=== PATIENT | male | born 1945 | race Caucasian/White ===

== ENCOUNTER 2018-10-24 20:51 | Inpatient (IN) | payer OTHER ==
[2018-10-24 21:26] LABS: Absolute Lymphocytes (CBC) 0.7 K/uL (0.7-4.9); Absolute Monocytes 0.8 K/uL (0.1-1.3); Absolute Neutrophil 8.6 K/uL (1.8-8.0); Basophils % 1.1 % (0-1.3); Eosinophils % 0.6 % (0-4.4); Hematocrit 47.3 % (39.6-49.0); Lymphocytes % 6.8 % (15.3-44.8); MPV 10.1 fL (7.6-11.3); RBC Red Blood Cell Count 4.91 M/uL (4.33-5.43)
[2018-10-24 21:34] LABS: Protime INR 1.38
[2018-10-24 21:49] LABS: Bilirubin Direct 0.9 mg/dL (0-0.2); Bilirubin Total 1.7 mg/dL (0.2-1.0); Magnesium 2.4 mg/dL (1.8-2.4); Potassium 3.5 mmol/L (3.5-5.1); Protein, Total 6.6 g/dL (6.4-8.2); Troponin (Emerg Dept Use Only) 0.03 ng/mL (0.0-0.045)
[2018-10-24] MEDS ORDERED: NA CHLORIDE 0.9% 2,000 ML ONE (22:13)
[2018-10-24 23:19] LABS: Urine Blood TRACE (NEG); Urine Glucose NEGATIVE (NEG); Urine Protein 1+ (NEG); Urine Specific Gravity 1.025 (1.005-1.030); Urine pH 5.5 (5.0-7.0)
[2018-10-24 23:31] LABS: Urine Bacteria <20 /HPF (NONE SEEN); Urine RBC <5 /HPF (NONE SEEN)
[2018-10-24 23:32] LABS: Urine Culture Reflex Order NOT NEEDED
--- NOTE | 2018-10-24 23:48 | EDPHYS ---
Physician Documentation [facility] Name: Favio Ellis Age: 73 yrs Sex: Male : 1945 Arrival Date: 10/24/2018 Time: 20:52 Bed 6 Private MD: Josué Weir F ED Physician Hardik Owens HPI: 10/24 23:41 This 73 yrs old Male presents to ER via EMS with complaints of Altered Mental jr8 Status. 23:41 The patient presents with decreased mental status, decreased responsiveness. Onset: The jr8 symptoms/episode began/occurred gradually, 1 month(s) ago, and became worse and became persistent. Possible causes: unknown. Associated signs and symptoms: The patient has no apparent associated signs or symptoms. Current symptoms: In the emergency department the patient's symptoms are unchanged from the initial presentation. Patient's baseline: Neuro: orientated to person, place, Motor: no deficits, Ambulation: unable to walk, is bedridden, Speech: the patient makes incomprehensible sounds. The patient has not experienced similar symptoms in the past. The patient has not recently seen a physician. Family stated that patient has history of Parkinson's and noticed that over the past month has had a steady decline in mental status and motor functions. Has got to the point where he had to be moved from assisted living facility back to daughters home where he could get more care from both her and his . Now over the past few days has become much worse and now will not eat or drink. Historical: - Allergies: 21:04 Tetanus Vaccines \T\ Toxoid; ed1 - Home Meds: 21:04 allopurinol 300 mg Oral tab 1 tab once daily for Gout [Active]; Eliquis 5 mg oral tab 1 ed1 tab 2 times per day [Active]; loratadine 10 mg oral tab 1 tab once daily [Active]; melatonin 5 mg Oral tab nightly [Active]; Nuplazid 17 mg oral tab 2 tabs once daily [Active]; Proscar 5 mg Oral tab 1 tab once daily for Symptomatic Benign Prostatic Hyperplasia [Active]; Sinemet 25-100 mg Oral tab 0.5 tab 3 times per day [Active]; Synthroid 175 mcg Oral tab 1 tab once daily for Hypothyroidism [Active]; ergocalciferol (vitamin D2) oral oral 1 tab once wkly [Active]; - PMHx: 21:04 Hallucinations; Parkinsons; Depression; Insomnia; Hypertension; Diabetes - NIDDM; ed1 Hypothyroidism; Hyperlipidemia; Gout; Benign Prostatic Hyperplasia; 22:51 Throat cancer; ed1 - PSHx: 21:04 Unable to obtain; ed1 - Immunization history:: Adult Immunizations unknown. - Social history:: Smoking status: unknown. - Ebola Screening: : Patient negative for fever greater than or equal to 101.5 degrees Fahrenheit, and additional compatible Ebola Virus Disease symptoms Patient denies exposure to infectious person Patient denies travel to an Ebola-affected area in the 21 days before illness onset No symptoms or risks identified at this time. ROS: 23:41 Unable to obtain ROS due to altered mental status. jr8 Exam: 23:41 Eyes: Pupils equal round and reactive to light, extra-ocular motions intact. Lids and jr8 lashes normal. Conjunctiva and sclera are non-icteric and not injected. Cornea within normal limits. Periorbital areas with no swelling, redness, or edema. ENT: Nares patent. No nasal discharge, no septal abnormalities noted. Tympanic membranes are normal and external auditory canals are clear. Oropharynx with no redness, swelling, or masses, exudates, or evidence of obstruction, uvula midline. Mucous membranes dry. Neck: Trachea midline, no thyromegaly or masses palpated, and no cervical lymphadenopathy. Supple, full range of motion without nuchal rigidity Cardiovascular: Regular rate and rhythm with a normal S1 and S2. No gallops, murmurs, or rubs. Normal PMI, no JVD. No pulse deficits. Respiratory: Lungs have equal breath sounds bilaterally, clear to auscultation and percussion. No rales, rhonchi or wheezes noted. No increased work of breathing, no retractions or nasal flaring. Abdomen/GI: Soft with normal bowel sounds. No distension or tympany. No guarding or rebound Skin: Warm, dry with normal turgor. Normal color. abrasions noted to arms, legs, and face from rug aldnaa MS/ Extremity: Pulses equal, no cyanosis. Neurovascular intact. Contracted 23:41 Neuro: Orientation: Not oriented to person, place, time, situation, Mentation: confused, unable to follow commands, Motor: moves all fours, Abnormal movements: resting tremor, is located in the right hand, left hand, right arm, left arm, right leg and left leg. Vital Signs: 21:04 BP 117 / 90; Pulse 107; Resp 18; Temp 98.1(A); Pulse Ox 95% on R/A; ed1 22:47 BP 134 / 69; Pulse 98; Resp 20; Pulse Ox 97% on R/A; ed1 02 00:30 BP 149 / 73; Pulse 102; Resp 13; Temp 98.2(A); Pulse Ox 97% on R/A; ed1 MDM: 10/24 21:50 Patient medically screened. [facility] 23:46 Data reviewed: vital signs, nurses notes, lab test result(s), EKG, radiologic studies, jr8 CT scan, plain films, and as a result, I will admit patient. Data interpreted: Pulse oximetry: on room air is 98 %. Interpretation: normal. Counseling: I had a detailed discussion with the patient and/or guardian regarding: the historical points, exam findings, and any diagnostic results supporting the discharge/admit diagnosis, lab results, radiology results, the need for further work-up and treatment in the hospital. Physician consultation: Franco Chaidez MD was called at 23:46, was contacted at 23:46, regarding admission, to the telemetry unit. consult, patient's condition, and will see patient. 10/24 21:21 Order name: Basic Metabolic Panel; Complete Time: 21:54 1 10/24 21:21 Order name: CBC with Diff; Complete Time: 21:54 [facility] 10/24 21:21 Order name: LFT's; Complete Time: 21:54 [facility] 10/24 21:21 Order name: Magnesium; Complete Time: 21:54 [facility] 10/24 21:21 Order name: NT PRO-BNP; Complete Time: 21:54 1 10/24 21:21 Order name: PT-INR; Complete Time: 21:54 [facility] 10/24 21:21 Order name: Troponin (emerg Dept Use Only); Complete Time: 21:54 [facility] 10/24 22:01 Order name: CPK; Complete Time: 23:03 [facility] 10/24 22:16 Order name: Urine Microscopic Only; Complete Time: 23:38 [facility] 10/24 22:50 Order name: Urine Dipstick--Ancillary (enter results); Complete Time: 23:38 bb 10/25 00:55 Order name: CBC with Automated Diff [facility] 10/25 00:55 Order name: CBC with Automated Diff [facility] 10/25 00:55 Order name: CBC with Automated Diff [facility] 10/25 00:55 Order name: Comprehensive Metabolic Panel [facility] 10/24 21:21 Order name: XRAY Chest (1 view) [facility] 10/24 21:21 Order name: EKG; Complete Time: 21:23 [facility] 10/24 21:21 Order name: Cardiac monitoring; Complete Time: 21:26 [facility] 10/24 21:21 Order name: EKG - Nurse/Tech; Complete Time: 21:29 [facility] 10/24 21:21 Order name: IV Saline Lock; Complete Time: 21:26 [facility] 10/24 21:21 Order name: Labs collected and sent; Complete Time: 21:26 [facility] 10/24 21:21 Order name: O2 Per Protocol; Complete Time: 21:26 [facility] 10/24 21:21 Order name: O2 Sat Monitoring; Complete Time: 21:26 [facility] 10/24 22:16 Order name: CT Head Brain wo Cont [facility] 10/25 00:55 Order name: CONS Pharmacy Consult [facility] 10/25 00:55 Order name: NPO [facility] 10/25 00:55 Order name: Comprehensive Metabolic Panel [facility] 10/25 00:55 Order name: Comprehensive Metabolic Panel [facility] 10/24 22:16 Order name: Straight Cath - Urine; Complete Time: 22:48 [facility] 10/24 22:16 Order name: Urine Dipstick-Ancillary (obtain specimen); Complete Time: 22:48 [facility] Administered Medications: 22:12 Drug: NS 0.9% 1000 ml Route: IV; Rate: 1000 ml; Site: right forearm; ed1 23:37 Follow up: IV Status: Completed infusion; IV Intake: 1000ml ed1 22:12 Drug: NS 0.9% 1000 ml Route: IV; Rate: 100 ml/hr; Site: right forearm; ed1 10/25 01:10 Follow up: IV Status: Infusion continued upon admission ed1 10/24 23:08 Drug: NS 0.9% 1000 ml Route: IV; Rate: 1000 ml; Site: right forearm; ed1 10/25 00:30 Follow up: IV Status: Completed infusion; IV Intake: 1000ml ed1 Point of Care Testing: Blood Glucose: 10/24 21:19 Blood Glucose: 104 mg/dL; lp1 Ranges: Critical Glucose Levels:Adult <50 mg/dl or >400 mg/dl <40 mg/dl or >180 mg/dl Disposition: 10/25 06:53 Co-signature as Attending Physician, Hardik Owens MD I agree with the assessment and mendoza plan of care. Disposition: 10/24/18 23:47 Hospitalization ordered by Franco Chaidez for Inpatient Admission. Preliminary diagnosis are Dehydration, Rhabdomyolysis, Altered mental status, unspecified. - Bed requested for Telemetry/MedSurg (Inpatient). - Status is Inpatient Admission. ed1 - Condition is Fair. - Problem is new. - Symptoms have improved. UTI on Admission? No Signatures: Dispatcher [employer] EDMS Risa Duran RN RN Hardik Owens MD MD cha Riggs, Erika, RN RN ed1 Vero Singh RN RN 1 Cecilio Monroy PA PA jr8 Corrections: (The following items were deleted from the chart) 00:58 10/24 23:47 Hospitalization Ordered by Franco Chaidez MD for Inpatient Admission. Preliminary diagnosis is Dehydration; Rhabdomyolysis; Altered mental status, unspecified. Bed requested for Telemetry/MedSurg (Inpatient). Status is Inpatient Admission. Condition is Fair. Problem is new. Symptoms have improved. UTI on Admission? No. jr8 10/25 01:41 00:58 10/24/2018 23:47 Hospitalization Ordered by Franco Chaidez MD for Inpatient ed1 Admission. Preliminary diagnosis is Dehydration; Rhabdomyolysis; Altered mental status, unspecified. Bed requested for Telemetry/MedSurg (Inpatient). Status is Inpatient Admission. Condition is Fair. Problem is new. Symptoms have improved. UTI on Admission? No. mw
--- NOTE | 2018-10-24 23:48 | ER ---
Nurse's Notes [facility] Name: Favio Ellis Age: 73 yrs Sex: Male : 1945 Arrival Date: 10/24/2018 Time: 20:52 Bed 6 Private MD: Josué Weir F Diagnosis: Dehydration;Rhabdomyolysis;Altered mental status, unspecified Presentation: 10/24 20:56 Presenting complaint: EMS states: His family just moved him here from an assisted ed1 living facility in [place]. He has had a decreased appetite and the family says he isn't making as much urine as he normally does. He also has been getting out of the chair and bed and laying on the floor and getting sores. Transition of care: patient was not received from another setting of care. Onset of symptoms was October 24, 2018. Risk Assessment: Do you want to hurt yourself or someone else? Patient reports no desire to harm self or others. Initial Sepsis Screen: Does the patient meet any 2 criteria? Altered Mental Status. HR > 90 bpm. Yes Does the patient have a suspected source of infection? No. Patient's initial sepsis screen is negative. Care prior to arrival: None. 20:56 Method Of Arrival: EMS: [facility] ed1 20:56 Acuity: BANG 2 ed1 Triage Assessment: 21:04 General: Appears uncomfortable, Behavior is restless. Pain: Unable to use pain scale. ed1 Does not appear to understand pain scale. EENT: Oral mucosa is dry. Neuro: Level of Consciousness is confused. Cardiovascular: Heart tones S1 S2 present. Respiratory: Airway is patent Respiratory effort is even, unlabored, Respiratory pattern is regular, symmetrical. GI: Abdomen is non-distended. : Parent/caregiver report the patient having decreased urine output. Derm: Skin with poor turgor has blisters on right arm, left shoulder, left spiritism, left lower abdomen. Musculoskeletal: Circulation, motion, and sensation intact. Capillary refill < 3 seconds, in bilateral fingers. Historical: - Allergies: 21:04 Tetanus Vaccines \T\ Toxoid; ed1 - Home Meds: 21:04 allopurinol 300 mg Oral tab 1 tab once daily for Gout [Active]; Eliquis 5 mg oral tab 1 ed1 tab 2 times per day [Active]; loratadine 10 mg oral tab 1 tab once daily [Active]; melatonin 5 mg Oral tab nightly [Active]; Nuplazid 17 mg oral tab 2 tabs once daily [Active]; Proscar 5 mg Oral tab 1 tab once daily for Symptomatic Benign Prostatic Hyperplasia [Active]; Sinemet 25-100 mg Oral tab 0.5 tab 3 times per day [Active]; Synthroid 175 mcg Oral tab 1 tab once daily for Hypothyroidism [Active]; ergocalciferol (vitamin D2) oral oral 1 tab once wkly [Active]; - PMHx: 21:04 Hallucinations; Parkinsons; Depression; Insomnia; Hypertension; Diabetes - NIDDM; ed1 Hypothyroidism; Hyperlipidemia; Gout; Benign Prostatic Hyperplasia; 22:51 Throat cancer; ed1 - PSHx: 21:04 Unable to obtain; ed1 - Immunization history:: Adult Immunizations unknown. - Social history:: Smoking status: unknown. - Ebola Screening: : Patient negative for fever greater than or equal to 101.5 degrees Fahrenheit, and additional compatible Ebola Virus Disease symptoms Patient denies exposure to infectious person Patient denies travel to an Ebola-affected area in the 21 days before illness onset No symptoms or risks identified at this time. Screenin:58 Abuse screen: Denies threats or abuse. Denies injuries from another. Nutritional ed1 screening: No deficits noted. Tuberculosis screening: No symptoms or risk factors identified. Fall Risk Fall in past 12 months (25 points). Secondary diagnosis (15 points) Alzheimer's, IV access (20 points). Ambulatory Aid- None/Bed Rest/Nurse Assist (0 pts). Gait- Normal/Bed Rest/Wheelchair (0 pts) Mental Status- Overestimates/Forgets Limitations (15 pts.). Total Barbosa Fall Scale indicates High Risk Score (45 or more points). Fall prevention measures have been instituted. Side Rails Up X 2 Placed Close to Nursing Station Frequent Obs/Assessments Occuring As available patient and family educated on Fall Prevention Program and Strategies. Assessment: 22:04 Reassessment: Patient appears in no apparent distress at this time. No changes from ed1 previously documented assessment. Patient and/or family updated on plan of care and expected duration. Pain level reassessed. Pt responsive to verbal stimuli. 22:47 Reassessment: Patient appears in no apparent distress at this time. No changes from ed1 previously documented assessment. Patient and/or family updated on plan of care and expected duration. Pain level reassessed. 10/25 00:30 Reassessment: Patient appears in no apparent distress at this time. No changes from ed1 previously documented assessment. Patient and/or family updated on plan of care and expected duration. Pain level reassessed. Neuro: Level of Consciousness is obeys commands. Vital Signs: 10/24 21:04 BP 117 / 90; Pulse 107; Resp 18; Temp 98.1(A); Pulse Ox 95% on R/A; ed1 22:47 BP 134 / 69; Pulse 98; Resp 20; Pulse Ox 97% on R/A; ed1 10/25 00:30 BP 149 / 73; Pulse 102; Resp 13; Temp 98.2(A); Pulse Ox 97% on R/A; ed1 ED Course: 10/24 20:52 Patient arrived in ED. al2 20:52 Josué Weir MD is Private Physician. al2 20:55 Meka Gandhi, LALO is Primary Nurse. ed1 20:58 Triage completed. ed1 21:04 Arm band placed on. ed1 21:10 Missed attempt(s): 20 gauge in right forearm. Inserted saline lock: 20 gauge in right lp1 wrist, using aseptic technique. Blood collected. 21:20 Patient has correct armband on for positive identification. Placed in gown. Side rails lp1 up X2. monitoring coordinator on. Pulse ox on. NIBP on. 21:45 X-ray completed. Portable x-ray completed in exam room. Patient tolerated procedure kp1 well. 21:50 Cecilio Monroy PA is PHCP. jr8 21:50 Hardik Owens MD is Attending Physician. jr8 21:50 XRAY Chest (1 view) In Process Unspecified. EDMS 21:52 Notified Nurse Practitioner and/or Physician Machine [employer] of a critical lab result(s), ed1 Chloride 121. 22:36 Radiology exam delayed due to pt unable to come to CT at this time. vm2 23:05 CT Head Brain wo Cont In Process Unspecified. EDMS 23:47 Franco Chaidez MD is Hospitalizing Provider. jr8 10/25 01:08 No provider procedures requiring assistance completed. Patient admitted, IV remains in ed1 place. intact, No redness/swelling at site. Administered Medications: 10/24 22:12 Drug: NS 0.9% 1000 ml Route: IV; Rate: 1000 ml; Site: right forearm; ed1 23:37 Follow up: IV Status: Completed infusion; IV Intake: 1000ml ed1 22:12 Drug: NS 0.9% 1000 ml Route: IV; Rate: 100 ml/hr; Site: right forearm; ed1 10/25 01:10 Follow up: IV Status: Infusion continued upon admission ed1 10/24 23:08 Drug: NS 0.9% 1000 ml Route: IV; Rate: 1000 ml; Site: right forearm; ed1 10/25 00:30 Follow up: IV Status: Completed infusion; IV Intake: 1000ml ed1 Point of Care Testing: Blood Glucose: 10/24 21:19 Blood Glucose: 104 mg/dL; lp1 Ranges: Intake: 23:37 IV: 1000ml; Total: 1000ml. ed1 10/25 00:30 IV: 1000ml; Total: 2000ml. ed1 Outcome: 10/24 23:47 Decision to Hospitalize by Provider. jrDarius 10/25 01:08 Admitted to Med/surg accompanied by tech, via stretcher, room 210, with chart, Report ed1 called to Aurora Ayers RN Condition: stable Discharge instructions given to family, Instructed on the need for admit, Demonstrated understanding of instructions. 01:41 Patient left the ED. ed1 Signatures: Dispatcher [employer] EDMeka Salinas RN RN ed1 Vero Singh RN RN lp1 Cecilio Monroy PA PA 8 Juliana Hough 2 Oumou Marroquin 1 Inés Thompson2 Corrections: (The following items were deleted from the chart) 10/24 22:37 22:20 Patient moved to [facility] 2
[2018-10-25] MEDS ORDERED: NA CHLORIDE 0.9% 1,000 ML ONE (00:36)
[2018-10-25] MEDS ORDERED: ACETAMINOPHEN 500 MG TAB PO PRN (00:52)
[2018-10-25] MEDS ORDERED: ONDANSETRON 4 MG/2 ML VIAL IV PRN (00:52)
[2018-10-25] MEDS ORDERED: D5W 1,000 ML IV SCH (01:00)
[2018-10-25 01:52] VITALS: BMI 24.0
[2018-10-25 06:01] LABS: Absolute Lymphocytes (CBC) 0.9 K/uL (0.7-4.9); Absolute Monocytes 0.9 K/uL (0.1-1.3); Absolute Neutrophil 6.6 K/uL (1.8-8.0); Basophils % 0.8 % (0-1.3); Eosinophils % 1.2 % (0-4.4); Hematocrit 42.3 % (39.6-49.0); Lymphocytes % 10.1 % (15.3-44.8); MPV 10.9 fL (7.6-11.3); Monocytes % 10.8 % (3.3-12.3); RBC Red Blood Cell Count 4.42 M/uL (4.33-5.43)
[2018-10-25 06:20] LABS: Albumin 2.4 g/dL (3.4-5.0); Bilirubin Total 1.6 mg/dL (0.2-1.0); Potassium 3.4 mmol/L (3.5-5.1); Protein, Total 5.4 g/dL (6.4-8.2)
--- NOTE | 2018-10-25 07:31 | RAD REPORT ---
EXAM DESCRIPTION: RAD - Chest Single View - 10/24/2018 9:49 pm CLINICAL HISTORY: Altered mental status, ^MALAISE COMPARISON: January 2016 TECHNIQUE: AP portable chest image was obtained 2138 hours . FINDINGS: Fibrotic lung pattern not significantly different from the comparison. No peripheral conso lidation. No failure, infiltrate or suspicious mass lesion. Heart and vasculature are normal. No alfred urable pleural effusion and no pneumothorax. No acute bony abnormality seen. No acute aortic findings suspected. IMPRESSION: Chronic lung disease is present matching the comparison. No new or progressive finding.
[2018-10-25] MEDS: D5W 1,000 ML IV SCH ×2 (08:00→17:24)
--- NOTE | 2018-10-25 08:16 | RAD REPORT ---
EXAM DESCRIPTION: CT - Head Brain Wo Cont - 10/25/2018 3:31 am CLINICAL HISTORY: Decreased appetite, transient alteration of awareness A preliminary report was provided at the time of the study and reviewed prior to final report. COMPARISON: CT head January 2016 TECHNIQUE: Axial 5 mm thick images of the head were obtained without IV contrast. All CT scans are performed using dose optimization technique as appropriate and may include automated exposure control or mA/KV adjustment according to patient size. FINDINGS: No intracranial hemorrhage, mass, edema or shift of mid-line structures. No acute infarcti on changes seen. Mild atrophy and moderate chronic ischemic changes are present not clearly different from the comparison. Ventricles are in proportion to volume loss. Mastoid air cells and visualized portions of the paranasal sinuses are clear. No acute bony findings. IMPRESSION: No acute intracranial finding. Mild atrophy and moderate chronic ischemic change matching the comparison.
--- NOTE | 2018-10-25 10:54 | P.HP ---
Certification for Inpatient Patient admitted to: Inpatient With expected LOS: >2 Midnights Patient will require the following post-hospital care: Snf Practitioner: I am a practitioner with admitting privileges, knowledge of patient current condition, hospital course, and medical plan of care. Services: Services provided to patient in accordance with Admission requirements found in Title 42 Section 412.3 of the Code of Federal Regulations Patient History Date of Service: 10/25/18 Reason for admission: altered mental status/ hypernatremia History of Present Illness: Patient is a 73-year-old gentleman who came into the hospital with altered mental status. Patient has been living at an assisted living in [place] but he was moved to the area by his daughter. They've been taking care of him. However, over the last few days patient has been acting strange. He has been laying on the floor and not moving. He has got bedsores. He has not been eating or drinking. He came into the hospital and he was found to have acute renal insufficiency with hypernatremia. He was admitted to the hospital for IV hydration. Will need to reassess his mental status and his mentation does not improve with correction of his sodium level. Allergies Tetanus Vaccines Allergy (Uncoded 01/25/16 17:41) Unknown Home Medications: Allopurinol 1 tab PO DAILY 10/25/18 Apixaban [Eliquis] 5 mg PO BID 10/25/18 Carbidopa/Levodopa 25-100 [Sinemet 25-100*] 0.5 tab PO TID 10/25/18 Ergocalciferol (Vitamin D2) [Vitamin D2] 1 tab PO SEECOM 10/25/18 Finasteride [Proscar] 5 mg PO DAILY 10/25/18 Levothyroxine Sodium [Synthroid] 175 mcg PO DAILY 10/25/18 Loratadine [Claritin*] 10 mg PO DAILY 10/25/18 Melatonin/Pyridoxine [Melatonin 5 mg Tablet] 5 mg PO BEDTIME 10/25/18 Pimavanserin Tartrate [Nuplazid] 2 tab PO DAILY 10/25/18 - Past Medical/Surgical History -: Parkinson's disease -: hypothyroidism -: allergic rhinitis -: gouty arthropathy Past Surgical History: Unable to obtain - Family History Father Family History: Reviewed- Non-Contributory - Social History Smoking Status: Never smoker Alcohol use: No CD- Drugs: No Review of Systems is unable to be obtained Physical Examination - Vital Signs Temperature: 98.9 F Blood Pressure: 139/67 Pulse: 85 Respirations: 12 Pulse Ox (%): 96 - Physical Exam General: In no apparent distress, Confused, Delirious HEENT: Atraumatic, PERRLA, Mucous membr. moist/pink, EOMI, Sclerae nonicteric Neck: Supple, 2+ carotid pulse no bruit, No LAD, Without JVD or thyroid abnormality Respiratory: Clear to auscultation bilaterally, Normal air movement Cardiovascular: Regular rate/rhythm, Normal S1 S2, Systolic murmur Gastrointestinal: Normal bowel sounds, Soft and benign, Non-distended, No tenderness Musculoskeletal: No tenderness Integumentary: No rashes Neurological: Sensation intact, Cranial nerves 3-12 intact, Abnormal gait, Abnormal tone, Abnormal sensation, Abnormal affect Lymphatics: No axilla or inguinal lymphadenopathy - Studies Laboratory Data (last 24 hrs) 10/24/18 21:10: PT 16.3 H, INR 1.38 10/24/18 21:10: WBC 10.3, Hgb 15.2, Hct 47.3, Plt Count 242 10/24/18 21:10: Sodium 160 H, Potassium 3.5, BUN 47 H, Creatinine 1.39 H, Glucose 112 H, Magnesium 2.4, Total Bilirubin 1.7 H, AST 83 H, ALT 27, Alkaline Phosphatase 122 H Assessment & Plan - Problems (Diagnosis) (1) Altered mental status Current Visit: Yes Status: Acute (2) Hypernatremia Current Visit: Yes Status: Acute (3) Acute renal insufficiency Current Visit: Yes Status: Acute (4) Parkinsons disease Current Visit: Yes Status: Acute - Plan plan: 1. IV hydration with D5 water 2. Monitor sodium reviewed 6 hr 3. Monitor renal function and urine output 4. Neuro checks every 6 hr 5. His MRI of the brain if his mentation does not improve with correction of the sodium 6. Physical therapy evaluation 7. GI DVT prophylaxis Discharge Plan: Home Plan to discharge in: Greater than 2 days - Advance Directives Does patient have a Living Will: No Does patient have a Durable POA for Healthcare: No - Code Status/Comfort Care Code Status Assessed: Yes Code Status: Full Code Critical Care: No Time Spent Managing PTS Care (In Minutes): 45
[2018-10-25] MEDS ORDERED: INFLUENZA VACCINE (for 3y+) 0.5 ML DOSE IMVAC ONE (12:00)
--- NOTE | 2018-10-25 16:18 | EKG ---
Test Date: 2018-10-24 Test Time: 21:25:27 Contract Administration Manager: ALINA MEASUREMENT RESULTS: Intervals: Rate: 105 UT: 132 QRSD: 66 QT: 364 QTc: 481 Mcleod: P: 48 UT: 132 QRS: 56 T: 243 INTERPRETIVE STATEMENTS: Sinus tachycardia ST & T wave abnormality, consider inferior ischemia ST & T wave abnormality, consider anterolateral ischemia Abnormal ECG Compared to ECG 01/25/2016 14:04:10 ST (T wave) deviation now present Possible ischemia now present Sinus rhythm no longer present Atrial premature complex(es) no longer present Electronically Signed On 10-25-18 16:17:08 GAMING COMMISSIONER by Lonnie Marcos
[2018-10-26] MEDS: D5W 1,000 ML IV SCH ×3 (03:03→22:40)
[2018-10-26 05:20] LABS: Albumin 2.2 g/dL (3.4-5.0); Bilirubin Total 1.9 mg/dL (0.2-1.0); Potassium 3.5 mmol/L (3.5-5.1); Protein, Total 5.3 g/dL (6.4-8.2)
[2018-10-26 06:10] LABS: Absolute Lymphocytes (CBC) 0.8 K/uL (0.7-4.9); Absolute Monocytes 0.5 K/uL (0.1-1.3); Absolute Neutrophil 4.9 K/uL (1.8-8.0); Basophils % 0.8 % (0-1.3); Eosinophils % 2.4 % (0-4.4); Hematocrit 38.3 % (39.6-49.0); Lymphocytes % 11.8 % (15.3-44.8); MPV 10.2 fL (7.6-11.3); Monocytes % 8.6 % (3.3-12.3); RBC Red Blood Cell Count 4.02 M/uL (4.33-5.43)
--- NOTE | 2018-10-26 11:48 | P.PN ---
Subjective Date of Service: 10/26/18 Chief Complaint: altered mental status/ hypernatremia Physical Examination - Vital Signs Temperature: 97.1 F Blood Pressure: 142/65 Pulse: 72 Respirations: 18 Pulse Ox (%): 97 Assessment And Plan - Plan Altered mental status, metabolic encephalopathy Hypernatremia Patient was more alert this morning. Continue IV hydration with D5 water Sodium improving, will continue to monitor. Neural checks every 6 hr Is mentation is not improve with further correction of sodium, will proceed with an MRI of the brain Physical therapy evaluation Acute renal insufficiency Resolved Creatinine back in normal range. Will continue to monitor Parkinsons disease Patient with a history of Parkinson's disease. Daughter states that she is aware the patient is end-stage Parkinson's Family meeting scheduled today for further close of care discussion. DVT prophylaxis: Lovenox GI prophylaxis: None Diet: NPO Disposition: Pending symptomatic improvement and further workup. Goals of care discussion with family today
[2018-10-26] MEDS: MORPHINE 2 MG/ML SYR IV PRN (14:22)
[2018-10-27] MEDS: D5W 1,000 ML IV SCH ×2 (08:06→21:25)
[2018-10-27 13:20] LABS: Absolute Lymphocytes (CBC) 0.6 K/uL (0.7-4.9); Absolute Monocytes 0.6 K/uL (0.1-1.3); Basophils % 0.7 % (0-1.3); Eosinophils % 2.6 % (0-4.4); Hematocrit 41.4 % (39.6-49.0); MPV 11.3 fL (7.6-11.3)
[2018-10-27 13:25] LABS: BUN Blood Urea Nitrogen 17 mg/dL (7-18); Bicarbonate 29 mmol/L (21-32); Glucose Level 98 mg/dL (74-106); Sodium Level 143 mmol/L (136-145)
--- NOTE | 2018-10-27 13:40 | P.PN ---
Subjective Date of Service: 10/27/18 Chief Complaint: altered mental status/ hypernatremia Subjective: Improving Patient seen and examined at bedside. No family at bedside. chart reviewed and discussed with nursing staff. Improving,more alert and awake today. trying to communicate Review of Systems 10-point ROS is otherwise unremarkable Physical Examination - Vital Signs Temperature: 97.5 F Blood Pressure: 140/65 Pulse: 70 Respirations: 13 Pulse Ox (%): 97 - Physical Exam General: In no apparent distress, Confused HEENT: Atraumatic, PERRLA, EOMI Neck: Supple, JVD not distended Respiratory: Clear to auscultation bilaterally, Normal air movement Cardiovascular: Regular rate/rhythm, Normal S1 S2 Gastrointestinal: Normal bowel sounds, No tenderness Musculoskeletal: No tenderness Integumentary: No rashes Neurological: Normal speech, Normal tone, Normal affect Lymphatics: No axilla or inguinal lymphadenopathy Assessment And Plan - Plan Altered mental status, metabolic encephalopathy Hypernatremia Patient was more alert this morning. Continue IV hydration with D5 water Sodium improving, will continue to monitor. Labs pending for today. Neuro checks every 6 hr If mentation is not improved with further correction of sodium, will proceed with an MRI of the brain Physical therapy evaluation Acute renal insufficiency Resolved Creatinine back in normal range. Will continue to monitor Parkinsons disease Patient with a history of Parkinson's disease. Daughter states that she is aware the patient is end-stage Parkinson's Family meeting: Daughter states that she would like to discuss with family regarding goals of care and possible hospice/placement. She would like more information on hospice but would like to wait till sunday after she talks with her family. DVT prophylaxis: Lovenox GI prophylaxis: None Diet: NPO Disposition: pending family decision. If they want full treatment, may need to consider PEG placement for feeding. Social work consulted.
[2018-10-27] MEDS: MORPHINE 2 MG/ML SYR IV PRN ×2 (13:55→21:25)
[2018-10-27] MEDS ORDERED: KCL 20 MEQ/100 mL IVPB 20 MEQ/100 ML BAG IV SCH (16:00)
[2018-10-27] MEDS ORDERED: POTASSIUM CL 40 MEQ in NA CHLORIDE 0.9% 500 ML IV SCH (16:00)
[2018-10-28] MEDS: MORPHINE 2 MG/ML SYR IV PRN ×3 (05:34→16:20)
[2018-10-28] MEDS: D5W 1,000 ML IV SCH ×2 (05:34→15:00)
[2018-10-28] MEDS ORDERED: KCL 20 MEQ/100 mL IVPB 20 MEQ/100 ML BAG IV SCH (07:00)
--- NOTE | 2018-10-28 13:34 | RAD REPORT ---
EXAM DESCRIPTION: RAD - Barium Swallow Modified - 10/28/2018 1:24 pm CLINICAL HISTORY: dysh Dysphagia COMPARISON: CT ABD PELVIS W CONTRAST dated 02/11/2009 TECHNIQUE: The patient was given liquid, semi-solid and solid forms of barium. Lateral view fluorosc opic imaging was performed in conjunction with speech pathology service. FINDINGS: LARYNGEAL PENETRATION, NOT CLEARED ASPIRATION WITH REGULAR THIN CUP SIP, WITH DELAYED, INEFFECTIVE COUGH PHARYNGEAL RESIDUE: VALLECULAR - MOD-SEVERE WITH LIQUIDS AND SOLIDS, PYRIFORM - MILD-MODERATE, LEAD PROJECT MANAGER IOR WALL - MIN- MILD DELAYED SWALLOW (3 SECONDS), DECREASED LARYNGEAL ELEVATION DURING SWALLOW, PROLONGED YET INEFFECTIVE MASTICATION (EDENTULOUS). Total fluoroscopy time: 3 minutes and 33 seconds
--- NOTE | 2018-10-28 15:40 | P.PN ---
Subjective Date of Service: 10/28/18 Primary Care Provider: Dr. Navarrete Chief Complaint: altered mental status/ hypernatremia Subjective: Demented Physical Examination - Vital Signs Temperature: 98 F Blood Pressure: 159/74 Pulse: 71 Respirations: 20 Pulse Ox (%): 95 - Physical Exam General: Demented HEENT: Atraumatic Neck: Supple Respiratory: Clear to auscultation bilaterally, Normal air movement Cardiovascular: Normal pulses, Regular rate/rhythm Gastrointestinal: Normal bowel sounds, Soft and benign, Non-distended Neurological: Dementia - Studies Medications List Reviewed: Yes Assessment & Plan Discharge Plan: Home Plan to discharge in: 24 Hours Physician Review Additional Text: Impression: Altered Mental Status secondary to Metabolic encephalopathy with Moderate malnutrition, hypernatremic Acute renal failure secondary to above BPH Parkinson's with dementia Hypothyroidism Plan: Altered Mental Status secondary to Metabolic encephalopathy with Moderate malnutrition, hypernatremic: Electrolytes improved. Patient still with dementia and Parkinson's. Will need to discuss with family about plan of care. Will check for possible dysphagia. Will need to consider hospice. Will need to address advanced directives. Acute renal failure secondary to above: Continue IV fluids. BPH: Will review home medication. Parkinson's with dementia: Will need to discuss with family about plan of care. Hypothyroidism: Continue with medication. Check tsh and free T4. Need to verify home meds Time Spent Managing Pts Care (In Minutes): 55
[2018-10-28] MEDS: D5 0.45 NS 1,000 ML IV SCH ×2 (16:27→21:47)
[2018-10-28] MEDS ORDERED: ZIPRASIDONE MESYLA 20 MG/VIAL IM PRN (17:21)
[2018-10-28] MEDS ORDERED: WATER FOR INJ,STERILE 10 ML IM PRN (17:21)
[2018-10-28 18:00] LABS: Absolute Lymphocytes (CBC) 0.6 K/uL (0.7-4.9); Absolute Monocytes 0.6 K/uL (0.1-1.3); Absolute Neutrophil 4.9 K/uL (1.8-8.0); Eosinophils % 3.6 % (0-4.4); Hematocrit 42.9 % (39.6-49.0); Lymphocytes % 9.6 % (15.3-44.8); MPV 10.4 fL (7.6-11.3); Monocytes % 9.4 % (3.3-12.3); RBC Red Blood Cell Count 4.55 M/uL (4.33-5.43)
[2018-10-28 18:17] LABS: BUN Blood Urea Nitrogen 12 mg/dL (7-18); Bicarbonate 30 mmol/L (21-32); Glucose Level 90 mg/dL (74-106); Potassium 3.7 mmol/L (3.5-5.1); Sodium Level 144 mmol/L (136-145)
[2018-10-28] MEDS: LORazepam 2 MG/ML VIAL IV PRN (18:18)
[2018-10-28] MEDS: APIXABAN 5 MG TABLET PO SCH (21:48)
[2018-10-28] MEDS: CARBIDOPA/LEVODOPA 25/100 TAB PO SCH (21:48)
[2018-10-28] MEDS: HALOPERIDOL LACT 5 MG/ML INJ IV PRN (21:49)
[2018-10-28 22:14] LABS: Urine White Blood Cell Casts OK
[2018-10-28 22:15] LABS: Platelet Estimate ADEQ
[2018-10-28 22:31] LABS: Blood Morphology Comment NOT SEEN (NOT SEEN)
[2018-10-29 06:45] LABS: BUN Blood Urea Nitrogen 11 mg/dL (7-18); Bicarbonate 26 mmol/L (21-32); Glucose Level 91 mg/dL (74-106); Potassium 3.6 mmol/L (3.5-5.1); Sodium Level 144 mmol/L (136-145)
[2018-10-29] MEDS ORDERED: KCL 20 MEQ/100 mL IVPB 20 MEQ/100 ML BAG IV SCH (07:00)
[2018-10-29] MEDS: HOME MED 1 EA UNK (Pimavanserin Tartrate [Nuplazid] 2 TAB) PO SCH (09:00)
[2018-10-29] MEDS ORDERED: HOME MED 1 EA UNK (Levothyroxine Sodium [Synthroid] 175 MCG) PO SCH (09:00)
[2018-10-29] MEDS: CARBIDOPA/LEVODOPA 25/100 TAB PO SCH ×3 (09:46→21:33)
[2018-10-29] MEDS: LEVOTHYROXINE SOD 0.075 MG TAB PO SCH (09:47)
[2018-10-29] MEDS: ALLOPURINOL 300 MG TAB PO SCH (09:47)
[2018-10-29] MEDS: APIXABAN 5 MG TABLET PO SCH ×2 (09:47→21:34)
[2018-10-29] MEDS: LEVOTHYROXINE SOD 0.1 MG TAB PO SCH (09:47)
[2018-10-29] MEDS: FINASTERIDE 5 MG TAB PO SCH (09:47)
--- NOTE | 2018-10-29 14:54 | P.PN ---
Subjective Date of Service: 10/29/18 Primary Care Provider: Dr. Navarrete Chief Complaint: altered mental status/ hypernatremia Subjective: Demented Physical Examination - Vital Signs Temperature: 97.3 F Blood Pressure: 127/60 Pulse: 71 Respirations: 18 Pulse Ox (%): 99 - Physical Exam General: Demented HEENT: Atraumatic Neck: Supple Respiratory: Clear to auscultation bilaterally, Normal air movement Cardiovascular: Normal pulses, Regular rate/rhythm Neurological: Dementia - Studies Medications List Reviewed: Yes Assessment & Plan Discharge Plan: Other ([facility] with hospice) Plan to discharge in: 24 Hours Physician Review Additional Text: Impression: Altered Mental Status secondary to Metabolic encephalopathy with Moderate malnutrition, hypernatremic Acute renal failure secondary to above BPH Parkinson's with dementia Hypothyroidism Plan: Altered Mental Status secondary to Metabolic encephalopathy with Moderate malnutrition, hypernatremic: Electrolytes improved. Patient with underlying dementia and Parkinson's. This is advanced. Case discussed in detail with family about plan of care. Family has decided hospice for the patient. Patient is do not resuscitate. Family desires for patient to go to a nursing facility with hospice. Will have social group worker help in this process. Acute renal failure secondary to above: Discontinue IV fluids as the patient well enter hospice. BPH: Will continue with medication. Parkinson's with dementia: Family has agree for hospice for the patient. Family desires placement to nursing facility with hospice. Hypothyroidism: Continue medication. Time Spent Managing Pts Care (In Minutes): 55
[2018-10-29] MEDS ORDERED: TRAMADOL HCL 50 MG TAB PO PRN (17:24)
[2018-10-29] MEDS: LORazepam 2 MG/ML VIAL IV PRN (17:38)
[2018-10-29] MEDS ORDERED: HYDROCODONE/APAP 7.5/325 MG TAB ONE (17:42)
[2018-10-29] MEDS ORDERED: MORPHINE 2 MG/ML SYR IV PRN (18:19)
[2018-10-29] MEDS: HALOPERIDOL LACT 5 MG/ML INJ IV PRN (22:29)
[2018-10-30] MEDS: LEVOTHYROXINE SOD 0.1 MG TAB PO SCH (06:27)
[2018-10-30] MEDS: LEVOTHYROXINE SOD 0.075 MG TAB PO SCH (06:27)
[2018-10-30] MEDS: CARBIDOPA/LEVODOPA 25/100 TAB PO SCH ×3 (08:49→20:49)
[2018-10-30] MEDS: APIXABAN 5 MG TABLET PO SCH ×2 (08:49→20:49)
[2018-10-30] MEDS: HYDROCODONE/APAP 7.5/325 MG TAB PO PRN (08:49)
[2018-10-30] MEDS: FINASTERIDE 5 MG TAB PO SCH (08:49)
[2018-10-30] MEDS: HOME MED 1 EA UNK (Pimavanserin Tartrate [Nuplazid] 2 TAB) PO SCH (08:50)
[2018-10-30] MEDS: ALLOPURINOL 300 MG TAB PO SCH (08:50)
--- NOTE | 2018-10-30 10:54 | P.PN ---
Subjective Date of Service: 10/30/18 Primary Care Provider: Dr. Navarrete Chief Complaint: altered mental status/ hypernatremia Subjective: Demented, Other (Patient had a good night. Patient eating.) Physical Examination - Vital Signs Temperature: 97 F Blood Pressure: 152/72 Pulse: 64 Respirations: 18 Pulse Ox (%): 93 - Physical Exam General: Alert, Demented (Advanced dementia) HEENT: Atraumatic Neck: Supple Respiratory: Clear to auscultation bilaterally, Normal air movement Cardiovascular: Normal pulses, Regular rate/rhythm Gastrointestinal: Normal bowel sounds Integumentary: No erythema, No warmth, No cyanosis Neurological: Dementia - Studies Medications List Reviewed: Yes Assessment & Plan Discharge Plan: Home (With hospice) Plan to discharge in: 24 Hours Physician Review Additional Text: Impression: Altered Mental Status secondary to Metabolic encephalopathy with Moderate malnutrition, hypernatremic Acute renal failure secondary to hypovolemia, malnutrition BPH Parkinson's with dementia Hypothyroidism Atrial fibrillation on chronic anti coagulation therapy Plan: Altered Mental Status secondary to Metabolic encephalopathy with Moderate malnutrition, hypernatremic and hypovolemia complicated with advanced dementia with Parkinson's: Patient did well overnight. Case and plan of care discussed at length yesterday and today with patient's family. Family understands that his condition is terminal. Advanced directives in place. Patient is DNR. Options of care were provided with the help of social media content manager. Family has decided on hospice. It appears that the only option they will be able to afford is home with hospice with probable caregiver services. They are to look into it today. Anticipate discharge in the next 24-48 hr if hospice at home can be arranged. Continue with medication for agitation. Continue with Parkinson's medication. Will try not to heavily sedate the patient during the day. Continue with comfort measures. Acute renal failure secondary to hypovolemia, malnutrition: Renal function back to baseline. IV fluids discontinued yesterday. BPH: Will continue with medication. Parkinson's with dementia: Family has agree for hospice for the patient. Family to look into home with hospice. Hypothyroidism: Continue medication. Atrial fibrillation on chronic anti coagulation therapy: Continue with medication. Time Spent Managing Pts Care (In Minutes): 55
[2018-10-30] MEDS: HALOPERIDOL LACT 5 MG/ML INJ IV PRN ×2 (13:23→20:49)
[2018-10-30] MEDS: LORazepam 2 MG/ML VIAL IV PRN ×2 (15:00→23:03)
[2018-10-30] MEDS: ABH TOP PRN ×2 (17:19→22:28)
[2018-10-31] MEDS: LEVOTHYROXINE SOD 0.075 MG TAB PO SCH (05:41)
[2018-10-31] MEDS: LEVOTHYROXINE SOD 0.1 MG TAB PO SCH (05:41)
[2018-10-31] MEDS: HALOPERIDOL LACT 5 MG/ML INJ IV PRN ×3 (05:52→20:06)
[2018-10-31] MEDS: ABH TOP PRN (07:15)
[2018-10-31] MEDS: LORazepam 2 MG/ML VIAL IV PRN ×2 (08:03→18:17)
[2018-10-31] MEDS: FINASTERIDE 5 MG TAB PO SCH (08:17)
[2018-10-31] MEDS: HOME MED 1 EA UNK (Pimavanserin Tartrate [Nuplazid] 2 TAB) PO SCH (08:18)
[2018-10-31] MEDS: ALLOPURINOL 300 MG TAB PO SCH (08:18)
[2018-10-31] MEDS: APIXABAN 5 MG TABLET PO SCH ×2 (08:18→22:10)
[2018-10-31] MEDS: CARBIDOPA/LEVODOPA 25/100 TAB PO SCH ×3 (08:18→22:11)
--- NOTE | 2018-10-31 11:29 | P.PN ---
Subjective Date of Service: 10/31/18 Primary Care Provider: Dr. Navarrete Chief Complaint: altered mental status/ hypernatremia Subjective: Demented, Other ( at bedside. reports patient had a restless night.) Physical Examination - Vital Signs Temperature: 98.3 F Blood Pressure: 137/94 Pulse: 88 Respirations: 14 Pulse Ox (%): 0 - Physical Exam General: Demented (Severe) Neck: Supple Respiratory: Clear to auscultation bilaterally, Normal air movement Cardiovascular: Normal pulses, Regular rate/rhythm Neurological: Dementia (Severe dementia) - Studies Medications List Reviewed: Yes Assessment & Plan Discharge Plan: Home (With hospice) Plan to discharge in: 24 Hours Physician Review Additional Text: Impression: Altered Mental Status secondary to Metabolic encephalopathy with Moderate malnutrition, hypernatremic Acute renal failure secondary to hypovolemia, malnutrition BPH Parkinson's with dementia Hypothyroidism Atrial fibrillation on chronic anti coagulation therapy Plan: Altered Mental Status secondary to Metabolic encephalopathy with Moderate malnutrition, hypernatremic and hypovolemia complicated with advanced dementia with Parkinson's: Patient somewhat restless last night. Will continue with medication for agitation. Case discussed with who is present at bedside. Will need to discuss with daughter who plans to choose hospice. Will have social worker assistant arrange for a family meeting to discuss choosing of hospice to arrange for hospice at home. Anticipate discharge once hospice is arranged at home. Acute renal failure secondary to hypovolemia, malnutrition: Renal function back to baseline. BPH: Will continue with medication. Parkinson's with dementia: Family has agree for hospice for the patient. Family to look into home with hospice. Family needs to decide on which hospice company so that discharge plan of care can be arranged. Hypothyroidism: Continue medication. Atrial fibrillation on chronic anti coagulation therapy: Continue with medication. Time Spent Managing Pts Care (In Minutes): 55
[2018-11-01] MEDS: ABH TOP PRN (00:18)
[2018-11-01] MEDS: HALOPERIDOL LACT 5 MG/ML INJ IV PRN (04:17)
[2018-11-01] MEDS: LEVOTHYROXINE SOD 0.1 MG TAB PO SCH (06:27)
[2018-11-01] MEDS: LEVOTHYROXINE SOD 0.075 MG TAB PO SCH (06:27)
[2018-11-01] MEDS: HOME MED 1 EA UNK (Pimavanserin Tartrate [Nuplazid] 2 TAB) PO SCH (09:00)
--- NOTE | 2018-11-01 09:10 | P.PN ---
Subjective Date of Service: 11/01/18 Primary Care Provider: Dr. Navarrete Chief Complaint: altered mental status/ hypernatremia Subjective: Demented (Patient had a restless night. Patient resting this morning. at bedside.) Physical Examination - Vital Signs Temperature: 97.0 F Blood Pressure: 129/74 Pulse: 76 Respirations: 16 Pulse Ox (%): 96 - Physical Exam General: Alert, Demented (Advanced) HEENT: Atraumatic Neck: Supple Respiratory: Clear to auscultation bilaterally Cardiovascular: Normal pulses, Regular rate/rhythm Neurological: Dementia (Advanced) - Studies Medications List Reviewed: Yes Assessment & Plan Discharge Plan: Other (Inpatient hospice) Plan to discharge in: 24 Hours Physician Review Additional Text: Impression: Altered Mental Status secondary to Metabolic encephalopathy with Moderate malnutrition, hypernatremic Acute renal failure secondary to hypovolemia, malnutrition BPH Parkinson's with dementia Hypothyroidism Atrial fibrillation on chronic anti coagulation therapy Plan: Altered Mental Status secondary to Metabolic encephalopathy with Moderate malnutrition, hypernatremic and hypovolemia complicated with advanced dementia with Parkinson's: Patient stable this morning. Patient continues to require medication for agitation. Spoke with this morning. They have agreed to inpatient hospice. Social work to help in this process. Will need to discuss with granddaughter whose help coordinating inpatient hospice care. Once inpatient hospice is set up then the patient can be discharged to the inpatient hospice company. Acute renal failure secondary to hypovolemia, malnutrition: Stable. BPH: Will continue with medication. Parkinson's with dementia: Family has agreed for inpatient hospice. Will have social work help in this process. Hypothyroidism: Continue medication. Atrial fibrillation on chronic anti coagulation therapy: Continue with medication. Time Spent Managing Pts Care (In Minutes): 55
[2018-11-01] MEDS: ALLOPURINOL 300 MG TAB PO SCH (09:23)
[2018-11-01] MEDS: APIXABAN 5 MG TABLET PO SCH (09:23)
[2018-11-01] MEDS: FINASTERIDE 5 MG TAB PO SCH (09:23)
[2018-11-01] MEDS: CARBIDOPA/LEVODOPA 25/100 TAB PO SCH ×2 (09:24→13:17)
--- NOTE | 2018-11-01 12:54 | P.DS ---
Admission Date: 10/25/18 Discharge Date: 11/01/18 Primary Care Provider: Dr. Navarrete Disposition: HOSPICE-HOME Comment: Inpatient hospice Discharge Condition: FAIR Reason for Admission: altered mental status/ hypernatremia Consultations: none Procedures: Medical Problem List: Altered Mental Status secondary to Metabolic encephalopathy with Moderate malnutrition, hypernatremic Acute renal failure secondary to hypovolemia, malnutrition BPH Parkinson's with dementia Hypothyroidism Atrial fibrillation on chronic anti coagulation therapy Brief History of Present Illness: 73-year-old male with Alzheimer's and Parkinson's. Patient was originally leaving in [place]. Patient transition from [place] to the local area to be close to family. Patient was having increasing altered mental status. The patient was evaluated the emergency room. He was found to have hypernatremia and agitation related to dementia. Patient was admitted for further evaluation. Hospital Course: Patient presented with altered mental status. Patient found to have metabolic encephalopathy with moderate malnutrition, hypernatremia and hypovolemia. This was complicated with advanced dementia and Parkinson's. During the course of his stay patient received IV fluids. This corrected his electrolytes. After long discussion with family including , daughter and granddaughter, family wanted to pursue hospice. In order to bridge hospice to home, inpatient hospice was consulted. Family agreed to inpatient hospice. Patient will be discharged to inpatient hospice to continue his care. Patient with underlying severe dementia with Parkinson's, BPH, hypothyroidism and chronic atrial fibrillation. Vital Signs/Physical Exam: Temp Pulse Resp BP Pulse Ox 97.0 F 76 16 129/74 96 11/01/18 09:10 11/01/18 09:10 11/01/18 09:10 11/01/18 09:10 11/01/18 09:10 General: Alert, Demented HEENT: Atraumatic Neck: Supple Respiratory: Clear to auscultation bilaterally, Normal air movement Cardiovascular: Normal pulses, Regular rate/rhythm Neurological: Dementia Laboratory Data at Discharge: WBC 6.4 K/uL (4.3-10.9) 10/28/18 17:44 Hgb 14.1 g/dL (13.6-17.9) 10/28/18 17:44 Hct 42.9 % (39.6-49.0) 10/28/18 17:44 Plt Count 195 K/uL (152-406) D 10/28/18 17:44 PT 16.3 SECONDS (9.5-12.5) H 10/24/18 21:10 INR 1.38 10/24/18 21:10 Sodium 144 mmol/L (136-145) 10/29/18 05:12 Potassium 3.6 mmol/L (3.5-5.1) 10/29/18 05:12 BUN 11 mg/dL (7-18) 10/29/18 05:12 Creatinine 0.69 mg/dL (0.55-1.3) 10/29/18 05:12 Glucose 91 mg/dL (74-106) 10/29/18 05:12 Magnesium 2.0 mg/dL (1.8-2.4) 10/29/18 05:12 Total Bilirubin 1.9 mg/dL (0.2-1.0) H 10/26/18 04:51 AST 64 U/L (15-37) H 10/26/18 04:51 ALT 58 U/L (12-78) 10/26/18 04:51 Alkaline Phosphatase 87 U/L (45-117) 10/26/18 04:51 Home Medications: Abh 1 ml TOP Q4HP PRN 10/25/18 Allopurinol 1 tab PO DAILY 10/25/18 Apixaban [Eliquis] 5 mg PO BID 10/25/18 Carbidopa/Levodopa 25-100 [Sinemet 25-100*] 0.5 tab PO TID 10/25/18 Ergocalciferol (Vitamin D2) [Vitamin D2] 1 tab PO SEECOM 10/25/18 Finasteride [Proscar] 5 mg PO DAILY 10/25/18 Levothyroxine Sodium [Synthroid] 175 mcg PO DAILY 10/25/18 Loratadine [Claritin*] 10 mg PO DAILY 10/25/18 Melatonin/Pyridoxine [Melatonin 5 mg Tablet] 5 mg PO BEDTIME 10/25/18 Pimavanserin Tartrate [Nuplazid] 2 tab PO DAILY 10/25/18 Desonide 59 ml TP BID PRN 10/28/18 Patient Discharge Instructions: 1. Patient will be discharged to inpatient hospice. 2. Medications to be adjusted by inpatient hospice. Diet: Comfort feeding Activity: Fall precautions Time spent managing pt's care (in minutes): 55
[2018-11-01] MEDS: LORazepam 2 MG/ML VIAL IV PRN (15:35)
[2018-11-01] MEDS: HYDROCODONE/APAP 7.5/325 MG TAB PO PRN (15:39)
[2018-11-01 15:40] VITALS: BP 132/62; TEMP 97.7
[2018-11-01 16:26] VITALS: O2SAT 95
== END 2018-11-01 17:38 | disposition hospice, inpatient (51) | DRG 640 ==
LOC: ER 20:51 → ERHOLD 10-25 00:52 → 2ND 10-25 01:10
PROVIDERS: ADMIT Hospitalist; ATTEND Internal Medicine
DX: E87.0 Hyperosmolality and hypernatremia (principal); G93.41 Metabolic encephalopathy; E44.0 Moderate protein-calorie malnutrition; N17.9 Acute kidney failure, unspecified; E86.1 Hypovolemia; N40.0 Benign prostatic hyperplasia without lower urinary tract symptoms; G20 Parkinson's disease; F02.80 Dementia in other diseases classified elsewhere, unspecified severity, without behavioral disturbance, psychotic disturbance, mood disturbance, and anxiety; G30.9 Alzheimer's disease, unspecified; E03.9 Hypothyroidism, unspecified; I48.2 Chronic atrial fibrillation; Z79.01 Long term (current) use of anticoagulants; Z88.7 Allergy status to serum and vaccine; F32.9 Major depressive disorder, single episode, unspecified; J30.9 Allergic rhinitis, unspecified; M10.9 Gout, unspecified; Z66 Do not resuscitate; L89.152 Pressure ulcer of sacral region, stage 2
CPT/HCPCS: 36415; 70450; 71045; 74230; 80048; 80053; 80076; 81003; 81015; 82550; 82962; 83735; 83880; 84132; 84484; 85025; 85610; 92526; 92611; 93005; 96360; 96361; 99285; J1630; J2270; J7030

== ENCOUNTER 2018-11-01 17:37 | Inpatient (IN) | payer OTHER ==
[2018-11-01] MEDS ORDERED: ACETAMINOPHEN 500 MG TAB PO PRN (17:44)
[2018-11-01] MEDS ORDERED: MORPHINE 2 MG/ML SYR IV PRN (17:52)
[2018-11-01] MEDS ORDERED: WATER FOR INJ,STERILE 10 ML IM PRN ×2 (17:52)
[2018-11-01] MEDS ORDERED: ONDANSETRON 4 MG/2 ML VIAL IV PRN (17:52)
[2018-11-01] MEDS ORDERED: ZIPRASIDONE MESYLA 20 MG/VIAL IM PRN (17:52)
[2018-11-01] MEDS ORDERED: HYDROCODONE/APAP 7.5/325 MG TAB PO PRN (17:52)
[2018-11-01] MEDS ORDERED: INFLUENZA VACCINE (for 3y+) 0.5 ML DOSE IMVAC ONE (18:30)
[2018-11-01] MEDS ORDERED: PNEUMOCOCCAL VACCINE 0.5 ML IMVAC ONE (18:30)
[2018-11-01 18:47] VITALS: BMI 21.6
[2018-11-01] MEDS: CARBIDOPA/LEVODOPA 25/100 TAB PO SCH (22:02)
[2018-11-01] MEDS: HALOPERIDOL LACT 5 MG/ML INJ IV PRN (22:03)
[2018-11-02] MEDS: LORazepam 2 MG/ML VIAL IV PRN (02:21)
[2018-11-02] MEDS: HALOPERIDOL LACT 5 MG/ML INJ IV PRN (04:35)
[2018-11-02] MEDS: LEVOTHYROXINE SOD 0.075 MG TAB PO SCH (05:59)
[2018-11-02] MEDS: LEVOTHYROXINE SOD 0.1 MG TAB PO SCH (06:00)
[2018-11-02] MEDS ORDERED: LEVOTHYROXINE SOD 0.025 MG TAB PO SCH (06:30)
--- NOTE | 2018-11-02 08:31 | P.HP ---
Certification for Inpatient Patient admitted to: Inpatient With expected LOS: >2 Midnights Patient will require the following post-hospital care: Hospice Practitioner: I am a practitioner with admitting privileges, knowledge of patient current condition, hospital course, and medical plan of care. Services: Services provided to patient in accordance with Admission requirements found in Title 42 Section 412.3 of the Code of Federal Regulations Patient History Date of Service: 11/02/18 Reason for admission: [facility] History of Present Illness: MR. DUNHAM IS 73 YEARS OLD GM WITH SEVERE PARKINSON'S DISEASE AND RELATED DEMENTIA, COMES WITH AGITATION, HYPERNATREMIA, RHABDOMYOLYSIS, FAILURE TO THRIVE , WAS FOUND ON THE FLOOR AND HAS BED SORES. FAMILY GURPREET HIM HERE FROM [place] TO LOCAL HOME AND NOW HERE. HE IS GETTING WORSE SO FAMILY IS SEEKING HOSPICE CARE FOR COMFORT. HE HAS A DNR STATUS. DR. PANIAGUA CALLED ME TO GET HIM ADMITTED. Allergies Tetanus Vaccines Allergy (Uncoded 01/25/16 17:41) Unknown Home Medications: Abh 1 ml TOP Q4HP PRN 10/25/18 Allopurinol 1 tab PO DAILY 10/25/18 Apixaban [Eliquis] 5 mg PO BID 10/25/18 Carbidopa/Levodopa 25-100 [Sinemet 25-100*] 0.5 tab PO TID 10/25/18 Ergocalciferol (Vitamin D2) [Vitamin D2] 1 tab PO SEECOM 10/25/18 Finasteride [Proscar] 5 mg PO DAILY 10/25/18 Levothyroxine Sodium [Synthroid] 175 mcg PO DAILY 10/25/18 Loratadine [Claritin*] 10 mg PO DAILY 10/25/18 Melatonin/Pyridoxine [Melatonin 5 mg Tablet] 5 mg PO BEDTIME 10/25/18 Pimavanserin Tartrate [Nuplazid] 2 tab PO DAILY 10/25/18 Desonide 59 ml TP BID PRN 10/28/18 - Past Medical/Surgical History Has patient received pneumonia vaccine in the past: No Diabetic: No -: Parkinson's disease -: hypothyroidism -: allergic rhinitis -: gouty arthropathy -: diabetic -: HTN -: BPH -: parkinsosn Psychosis -: dementia - Family History Father -: Cancer Notes: brain Cancer - Social History Smoking Status: Former smoker Alcohol use: No CD- Drugs: No Caffeine use: No Place of Residence: Home Review of Systems is unable to be obtained Physical Examination - Vital Signs Temperature: 97.9 F Blood Pressure: 114/56 Pulse: 72 Respirations: 16 Pulse Ox (%): 97 - Physical Exam General: Moderate distress, Unresponsive (SEDATED FOR AGITATION.), Obese HEENT: Atraumatic, PERRLA, Mucous membr. moist/pink, EOMI, Sclerae nonicteric Neck: Supple, 2+ carotid pulse no bruit, No LAD, Without JVD or thyroid abnormality Respiratory: Clear to auscultation bilaterally, Normal air movement Cardiovascular: Regular rate/rhythm, Normal S1 S2 Gastrointestinal: Normal bowel sounds, No tenderness Musculoskeletal: No tenderness Integumentary: No rashes Neurological: Other (NOT ABLE TO MEASURE ), Dementia Lymphatics: No axilla or inguinal lymphadenopathy Assessment and Plan - Problems (Diagnosis) (1) Parkinsons disease Onset Date: 10/28/18 Current Visit: No Status: Chronic Plan: END STAGE, AGITATION NOT ABLE TO CONTROL WITH ORAL MEDS. LIFE MAY BE LESS THATN 5 DAYS. WE HAVE GIVEN FAMILY TIME TO LOOK FOR PLACEMENT. HE CAN'T GO BACK TO LOCAL HOME. DNR. COMFORT CARE MEDS. - Advance Directives Does patient have a Living Will: No Does patient have a Durable POA for Healthcare: Yes
[2018-11-02] MEDS ORDERED: ZIPRASIDONE MESYLA 20 MG/VIAL IM PRN (08:36)
[2018-11-02] MEDS: THIAMINE 200 MG/2 ML INJ IVP SCH (09:00)
[2018-11-02] MEDS: QUETIAPINE 25 MG TAB PO SCH ×2 (09:25→22:19)
[2018-11-02] MEDS: CARBIDOPA/LEVODOPA 25/100 TAB PO SCH ×3 (09:25→22:19)
[2018-11-02] MEDS: FINASTERIDE 5 MG TAB PO SCH (09:25)
[2018-11-02] MEDS: ALLOPURINOL 300 MG TAB PO SCH (09:25)
--- NOTE | 2018-11-02 10:49 | P.PN ---
Subjective Date of Service: 11/02/18 Chief Complaint: [facility] Subjective: No new changes, No C/O voiced HE IS STILL NOT WAKING UP. PER HE WAKES UP AT NIGHT. HE EATS SOME BUT NOT MUCH. I WAS GIVEN IMPRESSION BY DR. PANIAGUA THAT CANDACE DOES NOT WANT HIM BACK IN HER HOME. I TALKED TO TODAY AND SHE SAYS MAY BE THAT IS TRUE BUT SHE PREFERS HIM HOME WITH HOSPICE. Review of Systems is unable to be obtained Physical Examination - Vital Signs Temperature: 97.9 F Blood Pressure: 114/56 Pulse: 72 Respirations: 16 Pulse Ox (%): 97 - Physical Exam General: Unresponsive HEENT: Atraumatic, PERRLA, EOMI Neck: Supple, JVD not distended Respiratory: Clear to auscultation bilaterally, Normal air movement Cardiovascular: Regular rate/rhythm, Normal S1 S2 Gastrointestinal: Normal bowel sounds, No tenderness Musculoskeletal: No tenderness Integumentary: No rashes Neurological: Abnormal strength (NOT ABLE TO ASSESS WITH SEDATED STATUS AND NOT ABLE TO BE AROUSED.) Lymphatics: No axilla or inguinal lymphadenopathy - Studies Medications List Reviewed: Yes Assessment And Plan - Current Problems (Diagnosis) (1) Parkinsons disease Onset Date: 10/28/18 Current Visit: No Status: Chronic Plan: END STAGE, AGITATION NOT ABLE TO CONTROL WITH ORAL MEDS. LIFE MAY BE LESS THATN 5 DAYS. WE HAVE GIVEN FAMILY TIME TO LOOK FOR PLACEMENT. HE CAN'T GO BACK TO LOCAL HOME. DNR. COMFORT CARE MEDS. I GAVE THE TWO DAYS TO DECIDE. IF DAUGHTER DOES NOT WANT HIM AT HER HOME BY SUNDAY I NEED [facility] PAPERS SIGNED. SHE UNDERSTANDS. I EXPLAINED THAT STABLE PATIENTS WITH POOR GENERAL CONDITION CAN''T STAY IN HOSPITAL FOREVER. SHE SAID SHE DOES NOT SEE HIM STABLE. I EXPLAINED THAT PATIENTS WHO ARE NOT WELL BUT STABLE WHERE WE DON'T HAVE ANYTHING TO OFFER IN [facility] CAN'T STAY FOR MONTHS THEY WILL BE STABLE FOR LONG TIME. WE DON'T KNOW WHAT IS THE COURSE OF HIS CONDITION BUT I BELIEVE HE IS NOT IMMINENTLY TERMINAL. HE MAY GET WORSE TOMORROW BUT WE CAN'T TELL FOR SURE.
[2018-11-02] MEDS: ABH TOP PRN ×2 (14:16→21:30)
[2018-11-03] MEDS: ABH TOP PRN ×2 (04:55→12:03)
[2018-11-03] MEDS: LEVOTHYROXINE SOD 0.1 MG TAB PO SCH (05:23)
[2018-11-03] MEDS: LEVOTHYROXINE SOD 0.075 MG TAB PO SCH (05:23)
[2018-11-03] MEDS: THIAMINE 200 MG/2 ML INJ IVP SCH (09:00)
[2018-11-03] MEDS: FINASTERIDE 5 MG TAB PO SCH (09:07)
[2018-11-03] MEDS: CARBIDOPA/LEVODOPA 25/100 TAB PO SCH ×3 (09:08→21:19)
[2018-11-03] MEDS: QUETIAPINE 25 MG TAB PO SCH ×2 (09:08→21:19)
[2018-11-03] MEDS: ALLOPURINOL 300 MG TAB PO SCH (09:08)
[2018-11-03] MEDS: TRAMADOL HCL 50 MG TAB PO PRN ×2 (13:12→21:20)
--- NOTE | 2018-11-03 13:43 | P.PN ---
Subjective Date of Service: 11/03/18 Chief Complaint: HOSPICE FOR PARKINSON[facility]S HE IS STILL NOT WAKING UP. PER HE WAKES UP AT NIGHT. HE EATS SOME BUT NOT MUCH. I WAS GIVEN IMPRESSION BY DR. PANIAGUA THAT CANDACE DOES NOT WANT HIM BACK IN HER HOME. I TALKED TO TODAY AND SHE SAYS MAY BE THAT IS TRUE BUT SHE PREFERS HIM HOME WITH HOSPICE. HE IS AWAKE NOW AFTER I CHANGED HIS MEDS AND REDUCED HEAVY NARCOTICS TO CHANGE TO SEROQUEL THAT SEEMS TO WORK LOT BETTER. Review of Systems is unable to be obtained General: Weakness Physical Examination - Vital Signs Temperature: 97.9 F Blood Pressure: 110/60 Pulse: 73 Respirations: 16 Pulse Ox (%): 96 - Physical Exam General: Alert, In no apparent distress, Confused Neck: Supple Respiratory: Normal air movement Cardiovascular: No edema, Normal S1 S2 Gastrointestinal: Normal bowel sounds Musculoskeletal: Other (CONTRACTTURES OF UPPER AND LOWER LIMBS.) Neurological: Abnormal strength, Abnormal tone, Dementia (NOT ABLE TO FOLLOW COMMANDS.) - Studies Medications List Reviewed: Yes Assessment And Plan - Current Problems (Diagnosis) (1) Parkinsons disease Onset Date: 10/28/18 Current Visit: No Status: Chronic Plan: END STAGE, AGITATION NOT ABLE TO CONTROL WITH ORAL MEDS. LIFE MAY BE LESS THATN 5 DAYS. WE HAVE GIVEN FAMILY TIME TO LOOK FOR PLACEMENT. HE CAN'T GO BACK TO LOCAL HOME. DNR. COMFORT CARE MEDS. I GAVE THE TWO DAYS TO DECIDE. IF DAUGHTER DOES NOT WANT HIM AT HER HOME BY SUNDAY I NEED HALF-WAY PAPERS SIGNED. SHE UNDERSTANDS. I EXPLAINED THAT STABLE PATIENTS WITH POOR GENERAL CONDITION CAN''T STAY IN HOSPITAL FOREVER. SHE SAID SHE DOES NOT SEE HIM STABLE. I EXPLAINED THAT PATIENTS WHO ARE NOT WELL BUT STABLE WHERE WE DON'T HAVE ANYTHING TO OFFER IN [facility] CAN'T STAY FOR MONTHS THEY WILL BE STABLE FOR LONG TIME. WE DON'T KNOW WHAT IS THE COURSE OF HIS CONDITION BUT I BELIEVE HE IS NOT IMMINENTLY TERMINAL. HE MAY GET WORSE TOMORROW BUT WE CAN'T TELL FOR SURE. AFTER STOPPING MORPHINE, HALDOL AND ATIVAN HE IS MUCH MORE AWAKE. I STARTED SEROQUEL, THIAMINE AND RAISED GEODON IF NEED. HE IS AWAKE, DEMENTED AND NOT ABLE TO FOLLOW COMMANDS BUT HE IS NOT AGITATED. I TALKED TO AND SHE SAYS DAUGHTER IS NOT IN TOWN YET AND SHE HAD NOT TALKED TO HER ABOUT HOME. THEN I GOT CELL NUMBER FOR DAUGHTER AND CALLED HER AND SHE SAID SHE IS BACK IN TOWN AND IS COMING TO HOSPITAL. DAUGHTER IS WILLING TO BRING FATHER HOME UNLIKE WHAT I HEARD FROM THE MOTHER. I WILL CALL [facility] TO GET HIM HOME ON HOSPICE IN AM.
[2018-11-04] MEDS: TRAMADOL HCL 50 MG TAB PO PRN ×2 (06:02→18:32)
[2018-11-04] MEDS: LEVOTHYROXINE SOD 0.075 MG TAB PO SCH (06:02)
[2018-11-04] MEDS: LEVOTHYROXINE SOD 0.1 MG TAB PO SCH (06:02)
[2018-11-04] MEDS: CARBIDOPA/LEVODOPA 25/100 TAB PO SCH ×3 (08:38→22:16)
[2018-11-04] MEDS: FINASTERIDE 5 MG TAB PO SCH (08:38)
[2018-11-04] MEDS: QUETIAPINE 25 MG TAB PO SCH ×2 (08:38→22:16)
[2018-11-04] MEDS: ALLOPURINOL 300 MG TAB PO SCH (08:39)
[2018-11-04] MEDS: THIAMINE 200 MG/2 ML INJ IVP SCH ×2 (08:39→11:17)
[2018-11-04] MEDS: ABH TOP PRN (13:00)
[2018-11-04] MEDS: LORazepam 2 MG/ML VIAL IV PRN (17:04)
--- NOTE | 2018-11-04 17:17 | P.PN ---
Subjective Date of Service: 11/04/18 Chief Complaint: HOSPICE FOR [facility] HE IS STILL NOT WAKING UP. PER HE WAKES UP AT NIGHT. HE EATS SOME BUT NOT MUCH. I WAS GIVEN IMPRESSION BY DR. PANIAGUA THAT CANDACE DOES NOT WANT HIM BACK IN HER HOME. I TALKED TO TODAY AND SHE SAYS MAY BE THAT IS TRUE BUT SHE PREFERS HIM HOME WITH HOSPICE. HE IS AWAKE NOW AFTER I CHANGED HIS MEDS AND REDUCED HEAVY NARCOTICS TO CHANGE TO SEROQUEL THAT SEEMS TO WORK LOT BETTER. HE IS AWAKE,IN SOME PAIN, AND IS FEEDING HIM. STILL CONFUSED. Review of Systems is unable to be obtained Physical Examination - Vital Signs Temperature: 98.3 F Blood Pressure: 129/66 Pulse: 82 Respirations: 16 Pulse Ox (%): 96 - Physical Exam General: Alert, Mild distress, Confused Respiratory: Normal air movement Cardiovascular: Regular rate/rhythm Gastrointestinal: Normal bowel sounds, Non-distended Neurological: Other (CONTRACTURES BEFORE.), Dementia - Studies Medications List Reviewed: Yes Assessment And Plan - Current Problems (Diagnosis) (1) Parkinsons disease Onset Date: 10/28/18 Current Visit: No Status: Chronic Plan: END STAGE, AGITATION NOT ABLE TO CONTROL WITH ORAL MEDS. LIFE MAY BE LESS THATN 5 DAYS. WE HAVE GIVEN FAMILY TIME TO LOOK FOR PLACEMENT. HE CAN'T GO BACK TO LOCAL HOME. DNR. COMFORT CARE MEDS. I GAVE THE TWO DAYS TO DECIDE. IF DAUGHTER DOES NOT WANT HIM AT HER HOME BY SUNDAY I NEED [facility] PAPERS SIGNED. SHE UNDERSTANDS. I EXPLAINED THAT STABLE PATIENTS WITH POOR GENERAL CONDITION CAN''T STAY IN HOSPITAL FOREVER. SHE SAID SHE DOES NOT SEE HIM STABLE. I EXPLAINED THAT PATIENTS WHO ARE NOT WELL BUT STABLE WHERE WE DON'T HAVE ANYTHING TO OFFER IN [facility]UTE [facility] CAN'T STAY FOR MONTHS THEY WILL BE STABLE FOR LONG TIME. WE DON'T KNOW WHAT IS THE COURSE OF HIS CONDITION BUT I BELIEVE HE IS NOT IMMINENTLY TERMINAL. HE MAY GET WORSE TOMORROW BUT WE CAN'T TELL FOR SURE. AFTER STOPPING MORPHINE, HALDOL AND ATIVAN HE IS MUCH MORE AWAKE. I STARTED SEROQUEL, THIAMINE AND RAISED GEODON IF NEED. HE IS AWAKE, DEMENTED AND NOT ABLE TO FOLLOW COMMANDS BUT HE IS NOT AGITATED. I TALKED TO AND SHE SAYS DAUGHTER IS NOT IN TOWN YET AND SHE HAD NOT TALKED TO HER ABOUT HOME. THEN I GOT CELL NUMBER FOR DAUGHTER AND CALLED HER AND SHE SAID SHE IS BACK IN TOWN AND IS COMING TO HOSPITAL. DAUGHTER IS WILLING TO BRING FATHER HOME UNLIKE WHAT I HEARD FROM THE MOTHER. I WILL CALL [facility] TO GET HIM HOME ON HOSPICE IN AM. I HAD CALLED THE DAUGHTER TO LET HER KNOW THAT WE HAVE LIMIT OF 5 DAYS IN THE HOSPITAL AND THEN HE NEEDS TO BE EITHER AT HOME OR [facility]. DAUGHTER TOLD ME THAT SHE IS AWARE, SHE SIGNED PAPERS AND WILL TAKE HIM HOME ON SUNDAY. THEY CAN'T [facility]. THEN LATER SAME DAY SHE GOT ANGRY AT EVERYONE AND TOLD [facility] PER [facility] THAT HE IS TO STAY IN HOSPITAL UNTIL HI DIES. BEFORE I TOOK HIM FOR INPATIENT HOSPICE I HAD TOLD DR. PANIAGUA AND THE WHO WAS AT BEDSIDE THAT HE IS NOT GOING TO IN 5 DAYS. HE IS END STAGE PARKISNON'S BUT NOT TERMINAL IMMINENTLY AND SO I WILL NEED A PLACEMENT IN 5 DAYS WE WITH HOSPICE HAVE ONLY 5 DAYS IN HOSPITAL. DAUGHTER GOT ANGRY AFTER CLAIMING THAT SHE UNDERSTOOD WHEN I CALLED. TODAY THEY HAVE CHANGED TO [facility]. DR. LOPEZ WILL TAKE OVER HIS CARE NOW WITH [facility].
[2018-11-05] MEDS: LEVOTHYROXINE SOD 0.075 MG TAB PO SCH (05:21)
[2018-11-05] MEDS: LEVOTHYROXINE SOD 0.1 MG TAB PO SCH (05:22)
[2018-11-05] MEDS: LORazepam 2 MG/ML VIAL IV PRN (05:44)
[2018-11-05] MEDS: ALLOPURINOL 300 MG TAB PO SCH (08:45)
[2018-11-05] MEDS: CARBIDOPA/LEVODOPA 25/100 TAB PO SCH (08:45)
[2018-11-05] MEDS: QUETIAPINE 25 MG TAB PO SCH (08:45)
[2018-11-05] MEDS: FINASTERIDE 5 MG TAB PO SCH (08:46)
[2018-11-05] MEDS: THIAMINE 200 MG/2 ML INJ IVP SCH (08:47)
[2018-11-05 10:53] VITALS: O2SAT 91
[2018-11-05 14:44] VITALS: BP 121/58; TEMP 101
== END 2018-11-05 13:00 | disposition hospice, home (50) | DRG 57 ==
LOC: 2ND 17:37
PROVIDERS: ADMIT Family Medicine; ATTEND Family Medicine
DX: G20 Parkinson's disease (principal); E87.0 Hyperosmolality and hypernatremia; M62.82 Rhabdomyolysis; F02.80 Dementia in other diseases classified elsewhere, unspecified severity, without behavioral disturbance, psychotic disturbance, mood disturbance, and anxiety; R62.7 Adult failure to thrive; Z66 Do not resuscitate; Z51.5 Encounter for palliative care; Z88.7 Allergy status to serum and vaccine; E03.9 Hypothyroidism, unspecified; J30.9 Allergic rhinitis, unspecified; E11.618 Type 2 diabetes mellitus with other diabetic arthropathy; N40.0 Benign prostatic hyperplasia without lower urinary tract symptoms; Z87.891 Personal history of nicotine dependence
CPT/HCPCS: J1630; J2270; J3411; J3486